=== PATIENT | female | born 1975 | race Caucasian/White ===

== ENCOUNTER 2016-12-15 15:46 | Observation (INO) | payer MEDICAID ==
--- NOTE | 2016-12-15 16:10 | Emergency Department Record ---
History of Present Illness - General Chief Complaint: Dizziness Stated Complaint: DIZZY,SHORT OF BREATH,HEART POUNDING Time Seen by Provider: 12/15/16 16:01 Source: Patient, RN notes reviewed Mode of Arrival: Ambulatory - History of Present Illness Initial Comments: weak and vomiting and lose stool. this started 4 days. patient states she is SOB and recent weight loss of 25 pounds over [address] Dr. Watson . Seeing oncologist Dr. Mauricio and being worked up for weight loss and she says it is not cancer.taking zofran and didn't seem to help. PMH parathyroid gland not working right for one month and thyroid has cysts on it. [facility] the [facility]. PSH hysterectomy Soc history smokes 1ppp. Stopped drinking 2 years ago and did drink daily before that (6-7 beers per day). She denies illegal drug . Today had some water and some eenergy drink and protein drink and no appetite. Pt said she had a chest CT about one month ago at [facility] and she reports nothing bad.patient admits to vomiting one time today and two times yesterday and three times the day before. Onset/Timin -: Days(s) Timing: Awoke with symptoms Description: Lightheadedness, Other History of Same: No History of Trauma: No Severity: Moderate Improves With: Remaining still Worsens With: Nothing, Exertion Associated Symptoms: Denies other symptoms, Shortness of breath - Related Data Home Medications Medication Instructions Recorded Confirmed Last Taken Acetaminophen [Tylenol Extra 1,000 mg PO Q6HR PRN 03/01/16 12/15/16 12/15/16 Strength] Duloxetine HCl [Cymbalta] 30 mg PO DAILY 03/01/16 12/15/16 12/15/16 Hydroxychloroquine Sulfate 200 mg PO BID 03/01/16 12/15/16 12/15/16 [Plaquenil] Loratadine [Claritin] 10 mg PO DAILY 03/01/16 12/15/16 12/15/16 Zolpidem Tartrate [Ambien] 10 mg PO ASDIR 03/31/16 12/15/16 12/15/16 Allergies Allergy/AdvReac Type Severity Reaction Status Date / Time pregabalin [From Lyrica] Allergy DIFFICULTY Verified 12/15/16 15:51 BREATHING Travel Screening - Travel/Exposure Within Last 30 Days Have you traveled within the last 30 days?: No - Travel/Exposure Within Last Year Have you traveled outside the [place] in the last year?: No - Additonal Travel Details Have you been exposed to anyone with a communicable illness?: No - Travel Symptoms Symptom Screening: None Review of Systems Constitutional: Reports: Malaise, Weakness, Weight change (lost 25 pounds in 3 months) Eyes: Reports: As per HPI. Denies: Eye discharge, Eye pain ENT: Reports: As per HPI. Denies: Congestion, Dental pain Respiratory: Reports: Cough, Dyspnea (with exercise). Denies: As per HPI Cardiovascular: Reports: As per HPI, Dyspnea on exertion. Denies: Arrhythmia, Chest pain Endocrine: Reports: Fatigue Gastrointestinal: Denies: Abdominal pain Neurological: Denies: Abnormal gait Past Medical History - SOCIAL HISTORY Smoking Status: Current every day smoker Alcohol Use: None Drug Use: None - RESPIRATORY Hx Respiratory Disorders: Yes Hx Asthma: Yes (uses inhalers PRN) - CARDIOVASCULAR Hx Cardio Disorders: No Hx Hypertension: Yes Comment:: d/t recent surgery - NEURO Hx Neuro Disorders: No - GI Hx GI Disorders: Yes Hx Abdominal Pain: Yes Hx Reflux: Yes - Hx Genitourinary Disorders: No - ENDOCRINE Hx Endocrine Disorders: Yes Comment:: Thyroid gland has cysts on it - MUSCULOSKELETAL Hx Musculoskeletal Disorders: Yes Comment:: joint pain, redness and swelling - ? autoimmune - PSYCH Hx Psych Problems: Yes Hx Anxiety: Yes Hx Depression: Yes - HEMATOLOGY/ONCOLOGY Hx Hematology/Oncology Disorders: No Family Medical History Any Significant Family History?: Yes Hx Cancer: Grandparents *Cancer Comment: Paternal Great-Grandfather - colon cancer Course Vital Signs 12/15/16 15:52 Temperature 98.4 F Pulse Rate 94 H Respiratory 18 Rate Blood Pressure 129/87 Pulse Ox 100 - Reevaluation(s) Reevaluation #1: reevaluated her med lists and she stated she is taking 10 tylenol 500 mg per day. I explained to her that could be hurting her liver and she needs to stop the tylenol. 12/15/16 17:02 Medical Decision Making - Lab Data Result diagrams: 12/15/16 16:30 12/15/16 16:30 Disposition Clinical Impression: Hyperkalemia, Weight loss Vomiting Qualifiers: Vomiting type: unspecified Vomiting Intractability: non-intractable Nausea presence: with nausea Qualified Code(s): R11.2 - Nausea with vomiting, unspecified Decision to Admit: Admit from ER Condition: (2) Stable Forms: Patient Portal Access Quality - Quality Measures Quality Measures: N/A - Blood Pressure Screening Does Patient Have Any of the Following: No Blood Pressure Classification: Pre-Hypertensive BP Reading Systolic Measurement: 129 Diastolic Measurement: 87 Screening for High Blood Pressure: < Pre-Hypertensive BP, F/U Documented > [ G8950] Pre-Hypertensive Follow-up Interventions: Referral to alternative/primary care provider.
[2016-12-15] MEDS ORDERED: 0.9 % SODIUM CHLORIDE 1,000 ML BAG IV ONE (16:17)
[2016-12-15 16:39] LABS: BASO % 0.5 % (0-6); EOS % 3.2 % (0-6); GRAN % 56.9 % (47-80); HEMATOCRIT 39.3 % (35.0-47.0); HEMOGLOBIN 14.5 gm/dl (11.6-16.0); LYMPH % 31.9 % (16-45); MEAN CELL VOLUME 91.6 fl (81-97); MEAN CORPUSCULAR HEMOGLOBIN 33.8 pg (27-33); MEAN CORPUSCULAR HGB CONC 36.9 g/dl (32-36); MEAN PLATELET VOLUME 10.9 fl (7.4-10.4); MONO % 7.5 % (0-9); PLATELET COUNT 492 K/uL (130-400); RED BLOOD COUNT 4.29 M/uL (3.80-5.40); RED CELL DISTRIBUTION WIDTH 13.1 % (11.5-14.5); URINE APPEARANCE CLEAR; URINE BILIRUBIN NEGATIVE (NEGATIVE); URINE BLOOD NEGATIVE (NEGATIVE); URINE COLOR YELLOW; URINE GLUCOSE (UA) NEGATIVE (NEGATIVE); URINE KETONE TRACE (NEGATIVE); URINE LEUKOCYTE ESTERASE NEGATIVE (NEGATIVE); URINE NITRITE NEGATIVE (NEGATIVE); URINE UROBILINOGEN 0.2 E.U./dL (0.20 - 1.00); WHITE BLOOD COUNT W/O DIFF 10.7 K/uL (4.2-12.2)
[2016-12-15 16:50] LABS: ALB/GLOB RATIO 1.6 (1.1-1.8); ALBUMIN 4.9 gm/dL (3.5-5.0); ALKALINE PHOSPHATASE 68 U/L (38-126); ALT/SGPT 38 U/L (9-52); ANION GAP 14.5 (7-16); AST/SGOT 23 U/L (14-36); BILIRUBIN,TOTAL 0.55 mg/dL (0.2-1.3); BLOOD UREA NITROGEN 14 mg/dL (7-17); CARBON DIOXIDE 14.5 mmol/L (22-30); CREATININE 0.9 mg/dL (0.52-1.04); EST GLOMERULAR FILTRATION RATE > 60 ml/min; GLUCOSE,RANDOM 73 mg/dL (70-110); LIPASE 78 U/L (23-300)
[2016-12-15 16:52] LABS: AMPHETAMINE SCREEN URINE NOT DETECTED; BARBITURATE SCREEN URINE NOT DETECTED; BENZODIAZEPINE SCREEN URINE NOT DETECTED; COCAINE SCREEN URINE NOT DETECTED; METHADONE SCREEN URINE NOT DETECTED; METHAMPHETAMINE SCREEN NOT DETECTED; OPIATE SCREEN URINE NOT DETECTED; OXYCODONE SCREEN URINE NOT DETECTED; PHENCYCLIDINE SCREEN URINE NOT DETECTED; PROPOXYPHENE SCREEN URINE NOT DETECTED; THC SCREEN URINE NOT DETECTED; TRICYCLIC ANTIDEPRESSANT SCRN DETECTED
[2016-12-15] MEDS ORDERED: POTASSIUM CHLORIDE 20 MEQ TABLET PO ONE (16:54)
[2016-12-15 17:07] LABS: ACETAMINOPHEN < 10.0 ug/mL (10.0-30.0); SALICYLATE < 1.0 mg/dL (2.8-20.0)
[2016-12-15 17:21] LABS: ARTERIAL BLD GAS O2 SATURATION 98.2 % (95-98); ARTERIAL BLOOD GAS BASE EXCESS -15.8 mmol/L (-2 - 3); ARTERIAL BLOOD GAS PCO2 23.6 mmHg (35-48); ARTERIAL BLOOD GAS pH 7.25 (7.35-7.45); O2 HEMOGLOBIN 93.6 % vol (94-99); TOTAL HEMOGLOBIN 11.5 g/dl (11.6-16)
[2016-12-15 17:22] LABS: ALLEN TEST PASS
--- NOTE | 2016-12-15 17:52 | Emergency Department Record ---
History of Present Illness - General Chief Complaint: Dizziness Stated Complaint: DIZZY,SHORT OF BREATH,HEART POUNDING Time Seen by Provider: 12/15/16 16:01 Source: Patient, RN notes reviewed Mode of Arrival: Ambulatory - History of Present Illness Onset/Timin -: Days(s) Timing: Awoke with symptoms Description: Lightheadedness, Other History of Same: No History of Trauma: No Severity: Moderate Improves With: Remaining still Worsens With: Nothing, Exertion Associated Symptoms: Denies other symptoms, Shortness of breath - Related Data Home Medications Medication Instructions Recorded Confirmed Last Taken Acetaminophen [Tylenol Extra 1,000 mg PO Q6HR PRN 03/01/16 12/15/16 12/15/16 Strength] Duloxetine HCl [Cymbalta] 30 mg PO DAILY 03/01/16 12/15/16 12/15/16 Hydroxychloroquine Sulfate 200 mg PO BID 03/01/16 12/15/16 12/15/16 [Plaquenil] Loratadine [Claritin] 10 mg PO DAILY 03/01/16 12/15/16 12/15/16 Zolpidem Tartrate [Ambien] 10 mg PO ASDIR 03/31/16 12/15/16 12/15/16 Allergies Allergy/AdvReac Type Severity Reaction Status Date / Time pregabalin [From Lyrica] Allergy DIFFICULTY Verified 12/15/16 15:51 BREATHING Travel Screening - Travel/Exposure Within Last 30 Days Have you traveled within the last 30 days?: No - Travel/Exposure Within Last Year Have you traveled outside the [place] in the last year?: No - Additonal Travel Details Have you been exposed to anyone with a communicable illness?: No - Travel Symptoms Symptom Screening: None Review of Systems Constitutional: Reports: Malaise, Weakness, Weight change (lost 25 pounds in 3 months) Eyes: Reports: As per HPI. Denies: Eye discharge, Eye pain ENT: Reports: As per HPI. Denies: Congestion, Dental pain Respiratory: Reports: Cough, Dyspnea (with exercise). Denies: As per HPI Cardiovascular: Reports: As per HPI, Dyspnea on exertion. Denies: Arrhythmia, Chest pain Endocrine: Reports: Fatigue Gastrointestinal: Denies: Abdominal pain Neurological: Denies: Abnormal gait Past Medical History - SOCIAL HISTORY Smoking Status: Current every day smoker Alcohol Use: None Drug Use: None - RESPIRATORY Hx Respiratory Disorders: Yes Hx Asthma: Yes (uses inhalers PRN) - CARDIOVASCULAR Hx Cardio Disorders: No Hx Hypertension: Yes Comment:: d/t recent surgery - NEURO Hx Neuro Disorders: No - GI Hx GI Disorders: Yes Hx Abdominal Pain: Yes Hx Reflux: Yes - Hx Genitourinary Disorders: No - ENDOCRINE Hx Endocrine Disorders: Yes Comment:: Thyroid gland has cysts on it - MUSCULOSKELETAL Hx Musculoskeletal Disorders: Yes Comment:: joint pain, redness and swelling - ? autoimmune - PSYCH Hx Psych Problems: Yes Hx Anxiety: Yes Hx Depression: Yes - HEMATOLOGY/ONCOLOGY Hx Hematology/Oncology Disorders: No Family Medical History Any Significant Family History?: Yes Hx Cancer: Grandparents *Cancer Comment: Paternal Great-Grandfather - colon cancer Course Vital Signs 12/15/16 15:52 Temperature 98.4 F Pulse Rate 94 H Respiratory 18 Rate Blood Pressure 129/87 Pulse Ox 100 Medical Decision Making - Lab Data Result diagrams: 12/15/16 16:30 12/15/16 16:30 Lab Results 12/15/16 12/15/16 12/15/16 Range/Units 16:30 16:30 16:30 WBC 10.7 (4.2-12.2) K/uL RBC 4.29 (3.80-5.40) M/uL Hgb 14.5 (11.6-16.0) gm/dl Hct 39.3 (35.0-47.0) % MCV 91.6 (81-97) fl MCH 33.8 H (27-33) pg MCHC 36.9 H (32-36) g/dl RDW 13.1 (11.5-14.5) % Plt Count 492 H (130-400) K/uL MPV 10.9 H (7.4-10.4) fl Gran % 56.9 (47-80) % Lymphocytes % 31.9 (16-45) % Monocytes % 7.5 (0-9) % Eosinophils % 3.2 (0-6) % Basophils % 0.5 (0-6) % Puncture Site pCO2 (35-48) mmHg pO2 (83-108) mmHg HCO3 (18-23) mmol/L Oxyhemoglobin (94-99) % vol ABG pH (7.35-7.45) ABG O2 Saturation (95-98) % ABG Base Excess (-2 - 3) mmol/L Yg Test Carboxyhemoglobin (0-1.5) % Methemoglobin (0.0-1.5) % Total Hemoglobin (11.6-16) g/dl Actual Respiration Rate (10-18) /MIN FiO2 (21-21) % Sodium 139 (136-145) mmol/L Potassium 2.5 L (3.5-5.1) mmol/L Chloride 110 H (98-107) mmol/L Carbon Dioxide 14.5 L (22-30) mmol/L Anion Gap 14.5 (7-16) BUN 14 (7-17) mg/dL Creatinine 0.9 (0.52-1.04) mg/dL Estimated GFR > 60 ml/min Random Glucose 73 (70-110) mg/dL Calcium 9.7 (8.5-10.1) mg/dL Magnesium (1.6-2.3) mg/dL Total Bilirubin 0.55 (0.2-1.3) mg/dL AST 23 (14-36) U/L ALT 38 (9-52) U/L Alkaline Phosphatase 68 (38-126) U/L Creatine Kinase (30-135) U/L Troponin I (0.00-0.034) ng/mL Total Protein 8.0 (6.3-8.2) gm/dL Albumin 4.9 (3.5-5.0) gm/dL Globulin 3.1 (1.4-4.8) gm/dL Albumin/Globulin Ratio 1.6 (1.1-1.8) Lipase 78 (23-300) U/L TSH (0.465-4.68) uIU/ml Urine Color Yellow Urine Appearance Clear Urine pH 6.5 (5.0-8.0) Ur Specific [place] 1.020 (1.002-1.030) Urine Protein 30 mg/dl H (NEGATIVE) Urine Glucose (UA) Negative (NEGATIVE) Urine Ketones Trace H (NEGATIVE) Urine Blood Negative (NEGATIVE) Urine Nitrite Negative (NEGATIVE) Urine Bilirubin Negative (NEGATIVE) Urine Urobilinogen 0.2 (0.20 - 1.00) E.U./dL Ur Leukocyte Esterase Negative (NEGATIVE) Salicylates (2.8-20.0) mg/dL Urine Opiates Screen Ur Oxycodone Screen Urine Methadone Screen Ur Propoxyphene Screen Acetaminophen (10.0-30.0) ug/mL Ur Barbituates Screen Ur Tricyclics Screen Ur Phencyclidine Scrn Ur Amphetamine Screen U Methamphetamines Scrn U Benzodiazepines Scrn Urine Cocaine Screen Urine Cannabis Screen Ethyl Alcohol (0-0.010) g/dL 12/15/16 12/15/16 12/15/16 Range/Units 16:30 16:30 16:30 WBC (4.2-12.2) K/uL RBC (3.80-5.40) M/uL Hgb (11.6-16.0) gm/dl Hct (35.0-47.0) % MCV (81-97) fl MCH (27-33) pg MCHC (32-36) g/dl RDW (11.5-14.5) % Plt Count (130-400) K/uL MPV (7.4-10.4) fl Gran % (47-80) % Lymphocytes % (16-45) % Monocytes % (0-9) % Eosinophils % (0-6) % Basophils % (0-6) % Puncture Site pCO2 (35-48) mmHg pO2 (83-108) mmHg HCO3 (18-23) mmol/L Oxyhemoglobin (94-99) % vol ABG pH (7.35-7.45) ABG O2 Saturation (95-98) % ABG Base Excess (-2 - 3) mmol/L Yg Test Carboxyhemoglobin (0-1.5) % Methemoglobin (0.0-1.5) % Total Hemoglobin (11.6-16) g/dl Actual Respiration Rate (10-18) /MIN FiO2 (21-21) % Sodium (136-145) mmol/L Potassium (3.5-5.1) mmol/L Chloride (98-107) mmol/L Carbon Dioxide (22-30) mmol/L Anion Gap (7-16) BUN (7-17) mg/dL Creatinine (0.52-1.04) mg/dL Estimated GFR ml/min Random Glucose (70-110) mg/dL Calcium (8.5-10.1) mg/dL Magnesium (1.6-2.3) mg/dL Total Bilirubin (0.2-1.3) mg/dL AST (14-36) U/L ALT (9-52) U/L Alkaline Phosphatase (38-126) U/L Creatine Kinase 91 (30-135) U/L Troponin I (0.00-0.034) ng/mL Total Protein (6.3-8.2) gm/dL Albumin (3.5-5.0) gm/dL Globulin (1.4-4.8) gm/dL Albumin/Globulin Ratio (1.1-1.8) Lipase (23-300) U/L TSH 1.74 (0.465-4.68) uIU/ml Urine Color Urine Appearance Urine pH (5.0-8.0) Ur Specific [place] (1.002-1.030) Urine Protein (NEGATIVE) Urine Glucose (UA) (NEGATIVE) Urine Ketones (NEGATIVE) Urine Blood (NEGATIVE) Urine Nitrite (NEGATIVE) Urine Bilirubin (NEGATIVE) Urine Urobilinogen (0.20 - 1.00) E.U./dL Ur Leukocyte Esterase (NEGATIVE) Salicylates (2.8-20.0) mg/dL Urine Opiates Screen Not detected Ur Oxycodone Screen Not detected Urine Methadone Screen Not detected Ur Propoxyphene Screen Not detected Acetaminophen (10.0-30.0) ug/mL Ur Barbituates Screen Not detected Ur Tricyclics Screen Detected Ur Phencyclidine Scrn Not detected Ur Amphetamine Screen Not detected U Methamphetamines Scrn Not detected U Benzodiazepines Scrn Not detected Urine Cocaine Screen Not detected Urine Cannabis Screen Not detected Ethyl Alcohol (0-0.010) g/dL 12/15/16 12/15/16 12/15/16 Range/Units 16:30 16:30 16:30 WBC (4.2-12.2) K/uL RBC (3.80-5.40) M/uL Hgb (11.6-16.0) gm/dl Hct (35.0-47.0) % MCV (81-97) fl MCH (27-33) pg MCHC (32-36) g/dl RDW (11.5-14.5) % Plt Count (130-400) K/uL MPV (7.4-10.4) fl Gran % (47-80) % Lymphocytes % (16-45) % Monocytes % (0-9) % Eosinophils % (0-6) % Basophils % (0-6) % Puncture Site pCO2 (35-48) mmHg pO2 (83-108) mmHg HCO3 (18-23) mmol/L Oxyhemoglobin (94-99) % vol ABG pH (7.35-7.45) ABG O2 Saturation (95-98) % ABG Base Excess (-2 - 3) mmol/L Yg Test Carboxyhemoglobin (0-1.5) % Methemoglobin (0.0-1.5) % Total Hemoglobin (11.6-16) g/dl Actual Respiration Rate (10-18) /MIN FiO2 (21-21) % Sodium (136-145) mmol/L Potassium (3.5-5.1) mmol/L Chloride (98-107) mmol/L Carbon Dioxide (22-30) mmol/L Anion Gap (7-16) BUN (7-17) mg/dL Creatinine (0.52-1.04) mg/dL Estimated GFR ml/min Random Glucose (70-110) mg/dL Calcium (8.5-10.1) mg/dL Magnesium 2.3 (1.6-2.3) mg/dL Total Bilirubin (0.2-1.3) mg/dL AST (14-36) U/L ALT (9-52) U/L Alkaline Phosphatase (38-126) U/L Creatine Kinase (30-135) U/L Troponin I < 0.012 (0.00-0.034) ng/mL Total Protein (6.3-8.2) gm/dL Albumin (3.5-5.0) gm/dL Globulin (1.4-4.8) gm/dL Albumin/Globulin Ratio (1.1-1.8) Lipase (23-300) U/L TSH (0.465-4.68) uIU/ml Urine Color Urine Appearance Urine pH (5.0-8.0) Ur Specific [place] (1.002-1.030) Urine Protein (NEGATIVE) Urine Glucose (UA) (NEGATIVE) Urine Ketones (NEGATIVE) Urine Blood (NEGATIVE) Urine Nitrite (NEGATIVE) Urine Bilirubin (NEGATIVE) Urine Urobilinogen (0.20 - 1.00) E.U./dL Ur Leukocyte Esterase (NEGATIVE) Salicylates < 1.0 L (2.8-20.0) mg/dL Urine Opiates Screen Ur Oxycodone Screen Urine Methadone Screen Ur Propoxyphene Screen Acetaminophen < 10.0 L (10.0-30.0) ug/mL Ur Barbituates Screen Ur Tricyclics Screen Ur Phencyclidine Scrn Ur Amphetamine Screen U Methamphetamines Scrn U Benzodiazepines Scrn Urine Cocaine Screen Urine Cannabis Screen Ethyl Alcohol 0.000 (0-0.010) g/dL 12/15/16 Range/Units 17:15 WBC (4.2-12.2) K/uL RBC (3.80-5.40) M/uL Hgb (11.6-16.0) gm/dl Hct (35.0-47.0) % MCV (81-97) fl MCH (27-33) pg MCHC (32-36) g/dl RDW (11.5-14.5) % Plt Count (130-400) K/uL MPV (7.4-10.4) fl Gran % (47-80) % Lymphocytes % (16-45) % Monocytes % (0-9) % Eosinophils % (0-6) % Basophils % (0-6) % Puncture Site Left wrist pCO2 23.6 L (35-48) mmHg pO2 108.0 (83-108) mmHg HCO3 10.0 L (18-23) mmol/L Oxyhemoglobin 93.6 L (94-99) % vol ABG pH 7.25 L (7.35-7.45) ABG O2 Saturation 98.2 H (95-98) % ABG Base Excess -15.8 L (-2 - 3) mmol/L Yg Test Pass Carboxyhemoglobin 5.0 H (0-1.5) % Methemoglobin 0.0 (0.0-1.5) % Total Hemoglobin 11.5 L (11.6-16) g/dl Actual Respiration Rate 16.0 (10-18) /MIN FiO2 21.0 (21-21) % Sodium (136-145) mmol/L Potassium (3.5-5.1) mmol/L Chloride (98-107) mmol/L Carbon Dioxide (22-30) mmol/L Anion Gap (7-16) BUN (7-17) mg/dL Creatinine (0.52-1.04) mg/dL Estimated GFR ml/min Random Glucose (70-110) mg/dL Calcium (8.5-10.1) mg/dL Magnesium (1.6-2.3) mg/dL Total Bilirubin (0.2-1.3) mg/dL AST (14-36) U/L ALT (9-52) U/L Alkaline Phosphatase (38-126) U/L Creatine Kinase (30-135) U/L Troponin I (0.00-0.034) ng/mL Total Protein (6.3-8.2) gm/dL Albumin (3.5-5.0) gm/dL Globulin (1.4-4.8) gm/dL Albumin/Globulin Ratio (1.1-1.8) Lipase (23-300) U/L TSH (0.465-4.68) uIU/ml Urine Color Urine Appearance Urine pH (5.0-8.0) Ur Specific [place] (1.002-1.030) Urine Protein (NEGATIVE) Urine Glucose (UA) (NEGATIVE) Urine Ketones (NEGATIVE) Urine Blood (NEGATIVE) Urine Nitrite (NEGATIVE) Urine Bilirubin (NEGATIVE) Urine Urobilinogen (0.20 - 1.00) E.U./dL Ur Leukocyte Esterase (NEGATIVE) Salicylates (2.8-20.0) mg/dL Urine Opiates Screen Ur Oxycodone Screen Urine Methadone Screen Ur Propoxyphene Screen Acetaminophen (10.0-30.0) ug/mL Ur Barbituates Screen Ur Tricyclics Screen Ur Phencyclidine Scrn Ur Amphetamine Screen U Methamphetamines Scrn U Benzodiazepines Scrn Urine Cocaine Screen Urine Cannabis Screen Ethyl Alcohol (0-0.010) g/dL Disposition Clinical Impression: Weight loss, Hypokalemia Vomiting Qualifiers: Vomiting type: unspecified Vomiting Intractability: non-intractable Nausea presence: with nausea Qualified Code(s): R11.2 - Nausea with vomiting, unspecified Condition: (2) Stable Forms: Patient Portal Access Quality - Quality Measures Quality Measures: N/A - Blood Pressure Screening Does Patient Have Any of the Following: No Blood Pressure Classification: Pre-Hypertensive BP Reading Systolic Measurement: 129 Diastolic Measurement: 87 Screening for High Blood Pressure: < Pre-Hypertensive BP, F/U Documented > [ G8950] Pre-Hypertensive Follow-up Interventions: Referral to alternative/primary care provider.
[2016-12-15] MEDS ORDERED: ONDANSETRON 4 MG ODT TABLET SL PRN (18:00)
[2016-12-15] MEDS ORDERED: POTASSIUM CHL 20MEQ IN 1L NS 20 MEQ/1,000 ML BAG IV SCH (18:00)
[2016-12-15] MEDS: POTASSIUM CHL 20MEQ IN 1L NS 20 MEQ/1,000 ML BAG IV SCH (18:24)
[2016-12-15] MEDS: HYDROXYCHLOROQUINE SULFATE 200 MG TABLET PO SCH (21:06)
[2016-12-15] MEDS: NICOTINE 21 MG/24 HOUR PATCH TD SCH (21:06)
[2016-12-15] MEDS: POTASSIUM CHLORIDE 20 MEQ TABLET PO SCH (21:06)
[2016-12-15] MEDS ORDERED: ZOLPIDEM TARTRATE 5 MG TABLET PO SCH (22:00)
[2016-12-16] MEDS: POTASSIUM CHL 20MEQ IN 1L NS 20 MEQ/1,000 ML BAG IV SCH (03:29)
[2016-12-16 06:19] LABS: ANION GAP 7.2 (7-16); BLOOD UREA NITROGEN 10 mg/dL (7-17); CARBON DIOXIDE 11.8 mmol/L (22-30); CREATININE 0.7 mg/dL (0.52-1.04); EST GLOMERULAR FILTRATION RATE > 60 ml/min; GLUCOSE,RANDOM 80 mg/dL (70-110)
[2016-12-16 06:30] LABS: ARTERIAL BLOOD GAS HCO3 11.3 mmol/L (18-23); ARTERIAL BLOOD GAS PCO2 30.2 mmHg (35-48)
[2016-12-16 06:31] LABS: ARTERIAL BLD GAS O2 SATURATION 71.6 % (95-98); ARTERIAL BLOOD GAS BASE EXCESS -15.5 mmol/L (-2 - 3)
[2016-12-16 06:32] LABS: CARBOXYHEMOGLOBIN 1.3 % (0-1.5); O2 HEMOGLOBIN 70.6 % vol (94-99)
--- NOTE | 2016-12-16 07:09 | History & Physical ---
History of Present Illness - Date of Service Date of Service for History & Physical: 12/16/16 - History of Present Illness Admitting Diagnosis: hypokalemia. vomiting. weakness. weight loss. metabolic disorder History of Present Illness: 41 y/o female with CC dizziness,fatigue, vomiting admitted for hypokalema. Past medical history includes asthma, GERD, 25lb weight loss since August 2016, thyroid cysts, questionable autoimmune disorder, anxiety, depression Prior to arrival had 3 day history of vomiting, fatigue, watery diarrhea, dizziness and rapid heart rate. Denies recent sick contacts or questionable food source. Patient reports 25lb weight loss in the past 3 months and is currently undergoing work up with endocrinology, oncology, and upcoming GI consult to diagnose cause. She has had previous episodes of vomiting, diarrhea and low potassium within the the last 3 months but has usually been able to remain hydrated with less than critical potassium numbers. Last colonoscopy 2009 which she reports was normal with the exception of a few polyps. She reports oncology has ruled out cancerous process. No recent mammogram but has hyperdense breasts. Did have appointment with endocrinology at [facility] the day prior to admission and reports there may be an issue with her parathyroid gland along with the known cysts on her thyroid that are too small to biopsy. Admits to taking 5gm total tylenol in a day for treatment of what she believes to be fibromyalgia. Denies history anorexia or bulemia. While in the ED VSS, EKG NSR with flattened T waves, UDS negative, acetaminophin level negative. Platelets slightly elevated at 492 with otherwise unremarkable findings in CBC. TSH 1.74. Potassium 2.5, chloride 110, CO2 14.5 with normal anion gap. Magnesium normal. Liver enzymes normal. ABGs with low CO2 23.6, low HCO3, low pH 7.25. Urinalysis trace ketones and protein. Complex medical history with acute onset vomiting. Clinically dehydrated. Admitted for dehyrdration, hypokalemia, repeat ABGs in the am and electrolyte replacement. 12/16/16- resting in bed comfortably. Denies chest pain, palpitations, muscle heaviness. Reports she feels much better today. Mild intermittent nausea, has not felt she needed an antiemetic. Continues to have loose watery stools ( had 4 today already) without abdominal pain or cramping. Does have an appetite today , ate 100% breakfast without worsening of nausea of vomiting. No new nursing concerns. PCP: Dr Sandi Watson Endocrinology: [facility] Oncology: [facility] Gastroenterology: Awaiting consult Jan 03 Rheumatology: Dr Marion Travel Screening - Travel/Exposure Within Last 30 Days Have you traveled within the last 30 days?: No - Travel/Exposure Within Last Year Have you traveled outside the [place] in the last year?: No - Additonal Travel Details Have you been exposed to anyone with a communicable illness?: No - Travel Symptoms Symptom Screening: None Review of Systems Constitutional: Reports: Malaise, Weakness, Weight change (lost 25 pounds in 3 months) Eyes: Reports: As per HPI. Denies: Eye discharge, Eye pain ENT: Reports: As per HPI. Denies: Congestion, Dental pain Respiratory: Reports: Cough, Dyspnea (with exercise). Denies: As per HPI Cardiovascular: Reports: As per HPI, Dyspnea on exertion. Denies: Arrhythmia, Chest pain Endocrine: Reports: Fatigue Gastrointestinal: Denies: Abdominal pain Neurological: Denies: Abnormal gait Past Medical History - SOCIAL HISTORY Smoking Status: Current every day smoker Alcohol Use: None Drug Use: None - RESPIRATORY Hx Respiratory Disorders: Yes Hx Asthma: Yes (uses inhalers PRN) - CARDIOVASCULAR Hx Cardio Disorders: No Hx Chest Pain: Yes Hx Hypertension: No Hx Palpitations: Yes Comment:: d/t recent surgery - NEURO Hx Neuro Disorders: Yes Hx Dizziness: Yes - GI Hx GI Disorders: Yes Hx Abdominal Pain: Yes Hx Reflux: Yes Hx Nausea/Vomiting: Yes Hx Wt Loss/Wt Gain: Yes - Hx Genitourinary Disorders: No - ENDOCRINE Hx Endocrine Disorders: Yes Comment:: Thyroid gland has cysts on it - MUSCULOSKELETAL Hx Musculoskeletal Disorders: Yes Comment:: joint pain, redness and swelling - ? autoimmune - PSYCH Hx Psych Problems: Yes Hx Anxiety: Yes Hx Depression: Yes - HEMATOLOGY/ONCOLOGY Hx Hematology/Oncology Disorders: No Family Medical History Any Significant Family History?: Yes Hx Cancer: Grandparents *Cancer Comment: Paternal Great-Grandfather - colon cancer H&P Meds/Allergies - Allergies Allergies: Allergies Allergy/AdvReac Type Severity Reaction Status Date / Time pregabalin [From Lyrica] Allergy DIFFICULTY Verified 12/15/16 15:51 BREATHING - Home Medications Home Medications Medication Instructions Recorded Confirmed Last Taken Acetaminophen [Tylenol Extra 1,000 mg PO Q6HR PRN 03/01/16 12/15/16 12/15/16 Strength] Duloxetine HCl [Cymbalta] 120 mg PO DAILY 03/01/16 12/15/16 12/15/16 Hydroxychloroquine Sulfate 200 mg PO BID 03/01/16 12/15/16 12/15/16 [Plaquenil] Loratadine [Claritin] 10 mg PO DAILY 03/01/16 12/15/16 12/15/16 Zolpidem Tartrate [Ambien] 10 mg PO QHS 03/31/16 12/15/16 12/15/16 - Active Medications Active Medications: Current Medications Duloxetine HCl (Cymbalta) 120 mg PO DAILY [facility] Enoxaparin Sodium (Lovenox) 40 mg SQ DAILY [facility] Hydroxychloroquine Sulfate (Plaquenil) 200 mg PO BID [facility] Last Admin: 12/15/16 21:06 Dose: 200 mg Potassium Chloride/Sodium Chloride ( Potassium Chl 20meq/) 20 meq in 1,000 mls @ 100 mls/hr IV Q10H [facility] Last Admin: 12/16/16 03:29 Dose: 100 mls/hr Loratadine (Claritin) 10 mg PO DAILY [facility] Nicotine (Nicotine 21mg) 1 patch TD DAILY [facility] Last Admin: 12/15/16 21:06 Dose: 1 patch Ondansetron HCl (Zofran Odt) 8 mg SL Q8HR PRN PRN Reason: GI UPSET Potassium Chloride (Klor-Con) 20 meq PO TID [facility] Last Admin: 12/15/16 21:06 Dose: 20 meq Zolpidem Tartrate (Ambien) 10 mg PO QHS [facility] Last Admin: 12/15/16 21:06 Dose: 10 mg Physical Exam - Vital Signs Vital Signs: Vital Signs - Last 24 Hrs Temp Pulse Pulse Pulse Resp BP BP 12/16/16 06:00 98.0 F 80 16 90/60 12/16/16 02:25 98.2 F 82 16 89/51 12/15/16 21:08 97.5 F L 84 18 95/57 12/15/16 21:00 84 18 12/15/16 18:31 85 12/15/16 18:00 86 83 16 115/85 105/77 Pulse Ox 12/16/16 06:00 100 12/16/16 02:25 97 12/15/16 21:08 100 12/15/16 21:00 12/15/16 18:31 12/15/16 18:00 98 - General General Appearance: Alert, Oriented x3, No acute distress, Other (apprears well hydrated, alert, appropriate affect, smiling. Is thin but no cachectic) - Head Head exam: Normal inspection Head exam detail: negative: Abrasion, Contusion - Eye Eye exam: Normal appearance - ENT ENT exam: Normal exam, Mucous membranes moist - Neck Neck exam: Normal inspection - Cardiovascular Cardiovascular Exam: Regular rate, Normal rhythm, Normal heart sounds - GI/Abdominal GI/Abdominal exam: Soft, Normal bowel sounds. negative: Tenderness - Rectal Rectal exam: Deferred - exam: Deferred - Extremities Extremities exam: Normal inspection. negative: Pedal edema - Back Back exam: Reports: Normal inspection - Neurological Neurological exam: Alert, CN II-XII intact, Oriented X3 - Psychiatric Psychiatric exam: Normal affect, Normal mood - Skin Skin exam: Dry, Intact, Normal color, Warm Results - Labs Result Diagrams: 12/15/16 16:30 12/16/16 06:00 Labs Last 24 Hours: Laboratory Results - last 24 hr 12/15/16 12/16/16 12/16/16 Unknown 06:00 06:19 Puncture Site pCO2 30.2 L pO2 46.0 L* HCO3 11.3 L Oxyhemoglobin 70.6 L ABG pH 7.20 L ABG O2 Saturation 71.6 L* ABG Base Excess -15.5 L Yg Test Not Reportable Carboxyhemoglobin 1.3 Methemoglobin 0.0 Actual Respiration Rate 16.0 FiO2 21.0 Sodium 142 Potassium 3.1 L Chloride 123 H Carbon Dioxide 11.8 L Anion Gap 7.2 BUN 10 Creatinine 0.7 Estimated GFR > 60 Random Glucose 80 Calcium 8.0 L Acetone, Qual Negative - Imaging and Cardiology Chest x-ray Status: Report reviewed (no acute process) VTE H&P Assessment - Risk for VTE Risk for VTE: Yes Risk Level: Moderate Risk Assessment Date: 12/16/16 Risk Assessment Time: 07:18 VTE Orders Placed or Will Be Placed: Yes Plan - Inpatient Certification Inpatient Certification: Admit to inpatient care: Based on my medical assessment, after consideration of patient's risk factors (age, co-morbidities and patient presenting symptoms and acuity), I expect that this patient will remain in the hospital greater than or equal to two midnights and that the services needed warrant inpatient care because: Patient Risk Factors: [] Estimated length of stay: [] The patient may reasonably be expected to be discharged or transferred to a hospital within 96 hours after admission to [facility]. Services needed: [] Post hospital care (if known): [] I certify that my determination is in accordance with my understanding of Medicare requirements for reasonable and necessary inpatient services. - Detailed Diagnosis and Plan (1) Hypokalemia Current Visit: Yes Status: Acute Base Code: E87.6 - HYPOKALEMIA Comment: - 41 y/o female admitted for hypokalema and metabolic alkalosis after 3 day history of vomiting, dizziness, rapid heart rate. ABGs low CO2, low HCO3, low pH, K 2.5, EKG with flattened T waves. Clinical picture of dehydration and metabolic alkalosis 2nd GI loss. Complex medical history includes 25lb unexplained weight loss in the last 3 months. Has been following with [facility], [facility] endocrinology, rheumatology to identify etiology. Significantly underweight with BMI 15. - IV potassium replacement - oral potassium replacement - IV hydration - telemetry - repeat BMP and ABG today - stool cultures - nutrition consult (2) Metabolic alkalosis Current Visit: Yes Status: Acute Base Code: E87.3 - ALKALOSIS Comment: - see above (3) Vomiting Current Visit: Yes Status: Acute Qualifiers: Vomiting type: unspecified Vomiting Intractability: non-intractable Nausea presence: with nausea Qualified Code(s): R11.2 - Nausea with vomiting, unspecified Base Code: R11.10 - VOMITING, UNSPECIFIED Comment: 12/16/16- vomiting resolved. Is tolerated PO intake. (4) Weight loss Current Visit: Yes Status: Acute Base Code: R63.4 - ABNORMAL WEIGHT LOSS Comment: 12/16/16- 3 month history of unexplained weight loss. Work up with community specialists in progress. - dietary consult for supplements - tolerating PO intake and eating well - continue follow up with specialists (oncology, gastroenterology, endocrinology ) as outpatient (5) DVT prophylaxis Current Visit: Yes Status: Acute Base Code: [id number] - Comment: 12/16/16- Lovenox 40mg QD (6) Full code status Current Visit: Yes Status: Acute Base Code: Z78.9 - OTHER SPECIFIED HEALTH STATUS Comment: 12/16/16- will remain full code during this hospitalization
[2016-12-16 07:20] LABS: ARTERIAL BLOOD GAS BASE EXCESS -15.7 mmol/L (-2 - 3); ARTERIAL BLOOD GAS PCO2 23.5 mmHg (35-48); ARTERIAL BLOOD GAS pH 7.25 (7.35-7.45)
[2016-12-16 07:21] LABS: ARTERIAL BLD GAS O2 SATURATION 98.4 % (95-98); CARBOXYHEMOGLOBIN 0.7 % (0-1.5); METHEMOGLOBIN 0.6 % (0.0-1.5); O2 HEMOGLOBIN 97.2 % vol (94-99)
[2016-12-16 07:25] LABS: ALLEN TEST PASS
[2016-12-16] MEDS: HYDROXYCHLOROQUINE SULFATE 200 MG TABLET PO SCH ×2 (08:24→09:58)
[2016-12-16] MEDS: POTASSIUM CHLORIDE 20 MEQ TABLET PO SCH ×2 (08:24→09:58)
[2016-12-16] MEDS: DULOXETINE HCL 30 MG CAPSULE.DR PO SCH ×2 (08:24→09:58)
[2016-12-16] MEDS ORDERED: ACETAMINOPHEN 500 MG TABLET PO PRN (09:29)
[2016-12-16] MEDS ORDERED: LORATADINE 10 MG TABLET PO SCH (10:00)
[2016-12-16] MEDS ORDERED: ENOXAPARIN 40 MG/0.4 ML SYR SQ SCH (10:00)
[2016-12-16] MEDS ORDERED: DULOXETINE HCL 30 MG CAPSULE.DR PO SCH (10:00)
[2016-12-16 10:47] LABS: ROTOVIRUS NOT DETECTED (NOT DETECT)
[2016-12-16] MEDS: NICOTINE 21 MG/24 HOUR PATCH TD SCH (13:12)
[2016-12-16 13:21] LABS: MOLECULAR C DIFF TOXIN SCREEN NOT DETECTED
[2016-12-16 14:52] LABS: ANION GAP 5.7 (7-16); BLOOD UREA NITROGEN 8 mg/dL (7-17); CARBON DIOXIDE 14.3 mmol/L (22-30); CREATININE 0.8 mg/dL (0.52-1.04); EST GLOMERULAR FILTRATION RATE > 60 ml/min; GLUCOSE,RANDOM 73 mg/dL (70-110)
--- NOTE | 2016-12-16 15:40 | Discharge Summary ---
Providers Discharge Summary Date: 12/16/16 Date of admission: 12/15/16 17:56 Expected Date of Discharge: 12/16/16 Attending physician: ROCCO FREEDMAN Primary care physician: KALLIE WATSON D.O. Physical Exam - Vital Signs Vital Signs: Vital Signs - Last 24 Hrs Temp Pulse Pulse Pulse Resp BP BP 12/16/16 14:00 83 16 93/64 12/16/16 09:43 98.4 F 91 H 16 85/59 12/16/16 06:00 98.0 F 80 16 90/60 12/16/16 02:25 98.2 F 82 16 89/51 12/15/16 21:08 97.5 F L 84 18 95/57 12/15/16 21:00 84 18 12/15/16 18:31 85 12/15/16 18:00 86 83 16 115/85 105/77 Pulse Ox 12/16/16 14:00 100 12/16/16 09:43 100 12/16/16 06:00 100 12/16/16 02:25 97 12/15/16 21:08 100 12/15/16 21:00 12/15/16 18:31 12/15/16 18:00 98 - General General Appearance: Alert, Oriented x3, No acute distress, Other (apprears well hydrated, alert, appropriate affect, smiling. Is thin but no cachectic) - Head Head exam: Normal inspection Head exam detail: negative: Abrasion, Contusion - Eye Eye exam: Normal appearance - ENT ENT exam: Normal exam, Mucous membranes moist - Neck Neck exam: Normal inspection - Cardiovascular Cardiovascular Exam: Regular rate, Normal rhythm, Normal heart sounds - GI/Abdominal GI/Abdominal exam: Soft, Normal bowel sounds. negative: Tenderness - Rectal Rectal exam: Deferred - exam: Deferred - Extremities Extremities exam: Normal inspection. negative: Pedal edema - Back Back exam: Reports: Normal inspection - Neurological Neurological exam: Alert, CN II-XII intact, Oriented X3 - Psychiatric Psychiatric exam: Normal affect, Normal mood - Skin Skin exam: Dry, Intact, Normal color, Warm Hospitalization - Hospitalization Admission Diagnosis: hypokalemia. vomiting. weakness. weight loss. metabolic disorder - Problem List/Discharge Diagnosis (1) Hypokalemia Current Visit: Yes Status: Acute Base Code: E87.6 - HYPOKALEMIA Comment: - 41 y/o female admitted for hypokalema and metabolic alkalosis after 3 day history of vomiting, dizziness, rapid heart rate. ABGs low CO2, low HCO3, low pH, K 2.5, EKG with flattened T waves. Clinical picture of dehydration and metabolic alkalosis 2nd GI loss. Complex medical history includes 25lb unexplained weight loss in the last 3 months. Has been following with [facility] oncology, [facility] endocrinology, rheumatology to identify etiology. Significantly underweight with BMI 15. After IV and PO potassium replacement potassium level up to 3.4. Remains asymptomatic. Diarrhea and nausea has resolved. Tolerating PO intake. Stool studies negative for c-diff, rotavirus, polys. Telemetry remained NSR with very slight flattening of t waves. Repeat ABG shows no worsening of metabolic alkalosis, BMP showing trend towards compensation - potassium chloride 20mEq BID - do not exceed 4gm Acetaminofen in 24 hours - follow up with PCP on Saturday as scheduled - follow up gastroenterolgist as scheduled early December - continue with [facility] endocrinology and [facility] oncology as scheduled (2) Metabolic alkalosis Current Visit: Yes Status: Acute Base Code: E87.3 - ALKALOSIS Comment: - see above (3) Vomiting Current Visit: Yes Status: Acute Discharge Diagnosis: Vomiting type: unspecified Vomiting Intractability: non-intractable Nausea presence: with nausea Qualified Code(s): R11.2 - Nausea with vomiting, unspecified Base Code: R11.10 - VOMITING, UNSPECIFIED Comment: 12/16/16- vomiting resolved. Is tolerated PO intake. (4) Weight loss Current Visit: Yes Status: Acute Base Code: R63.4 - ABNORMAL WEIGHT LOSS Comment: 12/16/16- 3 month history of unexplained weight loss. Work up with community specialists in progress. - tolerating PO intake and eating well - continue follow up with specialists (oncology, gastroenterology, endocrinology ) as outpatient (5) DVT prophylaxis Current Visit: Yes Status: Acute Base Code: [id number] - Comment: 12/16/16- Lovenox 40mg QD (6) Full code status Current Visit: Yes Status: Acute Base Code: Z78.9 - OTHER SPECIFIED HEALTH STATUS Comment: 12/16/16- will remain full code during this hospitalization - Hospitalization Course Disposition: Home, Self-Care Hospital Course: 41 y/o female with CC dizziness,fatigue, vomiting admitted for hypokalema. Past medical history includes asthma, GERD, 25lb weight loss since August 2016, thyroid cysts, questionable autoimmune disorder, anxiety, depression Prior to arrival had 3 day history of vomiting, fatigue, watery diarrhea, dizziness and rapid heart rate. Denies recent sick contacts or questionable food source. Patient reports 25lb weight loss in the past 3 months and is currently undergoing work up with endocrinology, oncology, and upcoming GI consult to diagnose cause. She has had previous episodes of vomiting, diarrhea and low potassium within the the last 3 months but has usually been able to remain hydrated with less than critical potassium numbers. Last colonoscopy 2009 which she reports was normal with the exception of a few polyps. She reports oncology has ruled out cancerous process. No recent mammogram but has hyperdense breasts. Did have appointment with endocrinology at [facility] the day prior to admission and reports there may be an issue with her parathyroid gland along with the known cysts on her thyroid that are too small to biopsy. Admits to taking 5gm total tylenol in a day for treatment of what she believes to be fibromyalgia. Denies history anorexia or bulemia. While in the ED VSS, EKG NSR with flattened T waves, UDS negative, acetaminophin level negative. Platelets slightly elevated at 492 with otherwise unremarkable findings in CBC. TSH 1.74. Potassium 2.5, chloride 110, CO2 14.5 with normal anion gap. Magnesium normal. Liver enzymes normal. ABGs with low CO2 23.6, low HCO3, low pH 7.25. Urinalysis trace ketones and protein. Complex medical history with acute onset vomiting. Clinically dehydrated. Admitted for dehyrdration, hypokalemia, repeat ABGs in the am and electrolyte replacement. 12/16/16- resting in bed comfortably. Denies chest pain, palpitations, muscle heaviness. Reports she feels much better today. Mild intermittent nausea, has not felt she needed an antiemetic. Continues to have loose watery stools ( had 4 today already) without abdominal pain or cramping. Does have an appetite today , ate 100% breakfast without worsening of nausea of vomiting. No new nursing concerns. PCP: Dr Kallie Watson Endocrinology: [facility] Oncology: [facility] Gastroenterology: Awaiting consult Jan 03 Rheumatology: Dr Marion Abnormal Labs: Abnormal Lab Results 12/16/16 12/16/16 12/16/16 Range/Units 06:00 06:19 07:10 pCO2 30.2 L 23.5 L (35-48) mmHg pO2 46.0 L* (83-108) mmHg HCO3 11.3 L 10.0 L (18-23) mmol/L Oxyhemoglobin 70.6 L (94-99) % vol ABG pH 7.20 L 7.25 L (7.35-7.45) ABG O2 Saturation 71.6 L* 98.4 H (95-98) % ABG Base Excess -15.5 L -15.7 L (-2 - 3) mmol/L Potassium 3.1 L (3.5-5.1) mmol/L Chloride 123 H (98-107) mmol/L Carbon Dioxide 11.8 L (22-30) mmol/L Anion Gap (7-16) Calcium 8.0 L (8.5-10.1) mg/dL 12/16/16 Range/Units 14:07 pCO2 (35-48) mmHg pO2 (83-108) mmHg HCO3 (18-23) mmol/L Oxyhemoglobin (94-99) % vol ABG pH (7.35-7.45) ABG O2 Saturation (95-98) % ABG Base Excess (-2 - 3) mmol/L Potassium 3.4 L (3.5-5.1) mmol/L Chloride 122 H (98-107) mmol/L Carbon Dioxide 14.3 L (22-30) mmol/L Anion Gap 5.7 L (7-16) Calcium 7.8 L (8.5-10.1) mg/dL Condition at Discharge: (2) Stable Discharge Medications - Discharge Medications Prescriptions: Potassium Chloride [Klor-Con] 20 meq PO BID #60 tab Home Medications: Ambulatory Orders Acetaminophen [Tylenol Extra Strength] 1,000 mg PO Q6HR PRN 03/01/16 [Last Taken 12/15/16] Duloxetine HCl [Cymbalta] 120 mg PO DAILY 03/01/16 [Last Taken 12/15/16] Hydroxychloroquine Sulfate [Plaquenil] 200 mg PO BID 03/01/16 [Last Taken ] Loratadine [Claritin] 10 mg PO DAILY 03/01/16 [Last Taken 12/15/16] Zolpidem Tartrate [Ambien] 10 mg PO QHS 03/31/16 [Last Taken 12/15/16] Acetaminophen [Tylenol 500Mg Tab] 1,000 mg PO Q6H PRN 12/16/16 [Last Taken Unknown] Potassium Chloride [Klor-Con] 20 meq PO BID #60 tab 12/16/16 [Last Taken Unknown ] Discharge Plan - Discharge Instructions Activity at Discharge: Increase Activity as Tolerated Diet at Discharge: Regular Diet
--- NOTE | 2016-12-17 08:23 | RADIOLOGY REPORT ---
EXAM: CHEST, TWO VIEWS HISTORY: CHEST PAIN, SHORTNESS OF BREATH WITH EXERTION. TECHNIQUE: PA and lateral views of the chest were obtained. Comparison: Two view chest 09/17/16. FINDINGS: The heart size is normal. Mild apical pleural thickening bilaterally. The lungs appear expanded with no acute infiltrate seen. No pleural effusion or pneumothorax evident. Minor spurring in the spine. IMPRESSION: MILD APICAL PLEURAL THICKENING BILATERALLY. NO ACUTE INFILTRATE IDENTIFIED. JOB NUMBER: [id number] MTDD
== END 2016-12-16 16:16 | disposition home or self-care (01) ==
LOC: ER 15:46 → INTOOBSV 17:56 → MEDSURG 17:56
PROVIDERS: ADMIT Emergency Medicine; ATTEND Family Medicine
DX: E87.6 Hypokalemia (principal); E87.3 Alkalosis; R11.2 Nausea with vomiting, unspecified; R63.4 Abnormal weight loss; Z78.9 Other specified health status; Z79.899 Other long term (current) drug therapy; F17.200 Nicotine dependence, unspecified, uncomplicated; J45.909 Unspecified asthma, uncomplicated; F41.8 Other specified anxiety disorders; E86.0 Dehydration
CPT/HCPCS: 99285 ×2; 96360; 82550; 83735; 83690; 85025; 82375 ×2; 84484; 80048; 80053; 82009; 89055; 87425; 81003; 82803 ×2; 84443; 80305; 87493; 71020; 36600 ×2; 93005; 93010; G0378 ×2; G0480 ×3; J3490; 80320; 80329; 99220; J1650; J7030

== ENCOUNTER 2017-10-31 12:06 | Emergency (ER) | payer MEDICAID ==
--- NOTE | 2017-10-31 12:52 | Emergency Department Record ---
History of Present Illness - General Chief Complaint: Abdominal Pain Stated Complaint: Abd pain/swelling Time Seen by Provider: 10/31/17 12:42 Source: Patient Mode of Arrival: Ambulatory Limitations: No limitations - History of Present Illness Initial Comments: 42 yo female presents with abdominal pain. She has been dealing with abdominal issues, appetite issues, and weight loss for 1.5 years. She has been seeing endocrinology, GI, rheumatology, PCP, hematology. No diagnosis has been made except she has an autoimmune disease NOS. She has had recent colonoscopy, CT scans, cystoscopy. No diagnosis. She has nausea, poor appetite, and pain. She frequently feels bloated. She states her current weight is stable at 105. Her lowest weight was 92. She does have gastroparesis. She states she had IBD younger in life but no evidence on the last colonscopy this year. She has anxiety, fibromyalgia, thyroid disease. MD Complaint: Abdominal pain Onset/Timin -: Week(s) Location: Bilateral flank, LUQ, RUQ Radiation: Back, Bilateral flank, Epigastric Severity: Moderate Severity scale (1-10): 5 Quality: Aching, Sharp Consistency: Intermittent Improves With: Nothing Worsens With: Nothing Associated Symptoms: Nausea - Related Data Home Medications Medication Instructions Recorded Confirmed Last Taken Bisacodyl [Dulcolax] 5 mg PO DAILY PRN 10/31/17 10/31/17 10/30/17 20:00 Methocarbamol [Robaxin] 500 mg PO DAILY 10/31/17 10/31/17 1 Week Ago ~10/24/17 Omeprazole [Prilosec] 20 mg PO DAILY 10/31/17 10/31/17 10/31/17 08:00 Tramadol HCl 50 mg PO TID PRN 10/31/17 10/31/17 1 Week Ago ~10/24/17 Previous Rx's Medication Instructions Recorded Potassium Chloride [Klor-Con] 20 meq PO BID #60 tab 12/16/16 Hydrocodone/Acetaminophen [[place] 1 tab PO Q8H PRN #10 tab 10/31/17 5mg/325mg] Allergies Allergy/AdvReac Type Severity Reaction Status Date / Time pregabalin [From Lyrica] Allergy DIFFICULTY Verified 12/15/16 15:51 BREATHING Travel Screening - Travel/Exposure Within Last 30 Days Have you traveled within the last 30 days?: No - Travel/Exposure Within Last Year Have you traveled outside the [place] in the last year?: No - Additonal Travel Details Have you been exposed to anyone with a communicable illness?: No - Travel Symptoms Symptom Screening: None Review of Systems Constitutional: Denies: Chills, Fever, Weakness Eyes: Denies: Eye discharge ENT: Denies: Congestion, Throat pain Respiratory: Denies: Cough, Dyspnea, Hemoptysis, Wheezes Cardiovascular: Denies: Chest pain, Palpitations, Syncope Endocrine: Reports: Fatigue Gastrointestinal: Reports: Abdominal pain, Nausea. Denies: Constipation, Diarrhea, Hematemesis, Hematochezia, Melena, Vomiting Genitourinary: Denies: Dysuria, Urgency Musculoskeletal: Denies: Arthralgia, Back pain, Myalgia Skin: Denies: Bruising, Change in color, Rash Neurological: Denies: Headache, Numbness, Weakness Psychiatric: Denies: Anxiety Hematological/Lymphatic: Denies: Blood Clots, Easy bleeding, Easy bruising, Swollen glands Past Medical History - SOCIAL HISTORY Smoking Status: Current every day smoker Alcohol Use: None Drug Use: None - RESPIRATORY Hx Respiratory Disorders: Yes Hx Asthma: Yes (uses inhalers PRN) - CARDIOVASCULAR Hx Cardio Disorders: No Hx Chest Pain: Yes Hx Hypertension: No Hx Palpitations: Yes Comment:: d/t recent surgery - NEURO Hx Neuro Disorders: Yes Hx Dizziness: Yes - GI Hx GI Disorders: Yes Hx Abdominal Pain: Yes Hx Reflux: Yes Hx Nausea/Vomiting: Yes Hx Wt Loss/Wt Gain: Yes Comment:: Gastroparesis - Hx Genitourinary Disorders: No - ENDOCRINE Hx Endocrine Disorders: Yes Comment:: Thyroid gland has cysts on it - MUSCULOSKELETAL Hx Musculoskeletal Disorders: Yes Comment:: joint pain, redness and swelling - ? autoimmune - PSYCH Hx Psych Problems: Yes Hx Anxiety: Yes Hx Depression: Yes - HEMATOLOGY/ONCOLOGY Hx Hematology/Oncology Disorders: No Family Medical History Any Significant Family History?: Yes Hx Cancer: Grandparents *Cancer Comment: Paternal Great-Grandfather - colon cancer Course Vital Signs 10/31/17 12:18 Temperature 98.7 F Pulse Rate 93 H Respiratory 18 Rate Blood Pressure 120/82 Pulse Ox 98 - Reevaluation(s) Reevaluation #1: The CBC and UA were reviewed No acute changes or abnormalities. 10/31/17 13:45 10/31/17 13:59 The K is 3.1 Supplemented 10/31/17 14:06 [facility] was used to review prior treatment and testing [facility] records were reviewed including colonoscopy, labs, and progress office visit notes No specific cause of her symptoms were found There are no acute changes on her labs HCG is negative Lipase is negative The patient has had extensive work ups No fever, changes in labs or examination to suggest additional testing will be valuable today We discussed the results of the tests and questions were answered at the time of discharge. The patient is doing well and is comfortable with DC. DC vitals were reviewed. We discussed at length reasons to immediately return to the ED as well as close follow up. The patient will call the PCP for close follow up of this ED visit to review this visit and the tests performed Medical Decision Making - Lab Data Result diagrams: 10/31/17 12:53 10/31/17 12:53 Disposition Disposition: Discharge Clinical Impression: Abdominal pain Qualifiers: Abdominal location: unspecified location Qualified Code(s): R10.9 - Unspecified abdominal pain Disposition: Home, Self-Care Condition: (1) Good Instructions: Abdominal Pain (ED) Additional Instructions: Call your PCP and your [facility] doctors for close follow up I recommend being seen at [facility] if your symptoms continue Prescriptions: Hydrocodone/Acetaminophen [[place] 5mg/325mg] 1 tab PO Q8H PRN #10 tab PRN Reason: Pain - General Forms: Patient Portal Access Time of Disposition: 14:09 Quality - Quality Measures Quality Measures: N/A - Blood Pressure Screening Does Patient Have Any of the Following: No Blood Pressure Classification: Pre-Hypertensive BP Reading Systolic Measurement: 120 Diastolic Measurement: 77 Screening for High Blood Pressure: < Pre-Hypertensive BP, F/U Documented > [ G8950] Pre-Hypertensive Follow-up Interventions: Referral to alternative/primary care provider.
[2017-10-31] MEDS ORDERED: ONDANSETRON HCL IV 4 MG/2 ML VIAL IVP ONE (12:53)
[2017-10-31] MEDS ORDERED: 0.9 % SODIUM CHLORIDE 1,000 ML BAG IV ONE (12:53)
[2017-10-31] MEDS ORDERED: KETOROLAC 30 MG/ML VIAL IVP ONE (13:01)
[2017-10-31 13:21] LABS: BASO % 0.5 % (0-6); EOS % 1.3 % (0-6); GRAN % 70.8 % (47-80); LYMPH % 20.5 % (16-45); MEAN CELL VOLUME 110.2 fl (81-97); MEAN CORPUSCULAR HEMOGLOBIN 35.8 pg (27-33); MEAN CORPUSCULAR HGB CONC 32.5 g/dl (32-36); MEAN PLATELET VOLUME 10.4 fl (7.4-10.4); MONO % 6.9 % (0-9); PLATELET COUNT 387 K/uL (130-400); RED BLOOD COUNT 3.63 M/uL (3.80-5.40); RED CELL DISTRIBUTION WIDTH 13.9 % (11.5-14.5); URINE APPEARANCE CLEAR; URINE BILIRUBIN NEGATIVE (NEGATIVE); URINE BLOOD NEGATIVE (NEGATIVE); URINE COLOR YELLOW; URINE GLUCOSE (UA) NEGATIVE (NEGATIVE); URINE KETONE NEGATIVE (NEGATIVE); URINE LEUKOCYTE ESTERASE NEGATIVE (NEGATIVE); URINE NITRITE NEGATIVE (NEGATIVE); URINE PROTEIN NEGATIVE (NEGATIVE); URINE UROBILINOGEN 0.2 E.U./dL (0.20 - 1.00); WHITE BLOOD COUNT W/O DIFF 10.5 K/uL (4.2-12.2)
[2017-10-31 13:33] LABS: BILIRUBIN,TOTAL < 0.20 mg/dL (0.2-1.0); BLOOD UREA NITROGEN 7 mg/dL (6-20); CREATININE 0.5 mg/dL (0.5-0.9); EST GLOMERULAR FILTRATION RATE > 60 mL/min
[2017-10-31 13:34] LABS: TOTAL PROTEIN 6.5 g/dL (6.6-8.7)
[2017-10-31 13:36] LABS: GLUCOSE,RANDOM 90 mg/dL (74-109)
[2017-10-31 13:38] LABS: ALB/GLOB RATIO 1.7 (1.1-1.8); ALBUMIN 4.1 g/dL (4.0-5.0); ALKALINE PHOSPHATASE 76 U/L (35-104); ALT/SGPT 21 U/L (<33); AST/SGOT 22 U/L (10.0-35.0); LIPASE 48 U/L (13-60)
[2017-10-31 13:39] LABS: C-REACTIVE PROTEIN 0.18 mg/dL (<0.5)
[2017-10-31] MEDS ORDERED: HYDROMORPHONE HCL 2 MG/ML VIAL IVP ONE (13:42)
[2017-10-31] MEDS ORDERED: POTASSIUM CHLORIDE 20 MEQ TABLET PO ONE (13:58)
[2017-10-31 14:41] LABS: ERYTHROCYTE SEDIMENTATION RATE 2 mm/hr (0-20)
== END 2017-10-31 14:43 | disposition home or self-care (01) ==
LOC: ER 12:06
DX: R10.84 Generalized abdominal pain (principal); R14.0 Abdominal distension (gaseous); R11.0 Nausea; F17.210 Nicotine dependence, cigarettes, uncomplicated
CPT/HCPCS: 99284 ×2; 96374; 96375; 83690; 85025; 85651; 86140; 80053; 81003; 84703; J1885; J1170; J7030

== ENCOUNTER 2018-12-14 13:29 | Emergency (ER) | payer MEDICAID ==
--- NOTE | 2018-12-14 14:17 | Emergency Department Record ---
History of Present Illness - General Stated complaint: LT ANKLE INJURY Time Seen by Provider: 12/14/18 14:11 Source: Patient Mode of Arrival: Ambulatory Limitations: No limitations - History of Present Illness Initial comments: 43 yo female presents with left foot and ankle pain. She stepped awkwardly out of a truck last night. She twisted the foot and ankle. She has pain over the lateral foot and ankle. Intact skin. No other injuries. She has had a bunion surgery on bother feet. MD Complaint: Extremity pain, Joint pain -: Days(s) (1) Location: Left -: Yes Arthralgia Radiation: Distal Quality: Aching Consistency: Constant Improves with: Immobilization Worsens with: Weight bearing Associated Symptoms: Arthralgias - Related Data Home Medications Medication Instructions Recorded Confirmed Last Taken Lisinopril 40 mg PO DAILY 12/14/18 12/14/18 12/14/18 Previous Rx's Medication Instructions Recorded Potassium Chloride [Klor-Con] 20 meq PO BID #60 tab 12/16/16 Allergies Allergy/AdvReac Type Severity Reaction Status Date / Time pregabalin [From Lyrica] Allergy DIFFICULTY Verified 12/15/16 15:51 BREATHING Review of Systems Constitutional: Denies: Chills, Fever, Malaise, Weakness Eyes: Denies: Eye discharge ENT: Denies: Congestion, Throat pain Respiratory: Denies: Cough Cardiovascular: Denies: Chest pain, Edema Endocrine: Denies: Fatigue Gastrointestinal: Denies: Abdominal pain, Diarrhea, Nausea, Vomiting Genitourinary: Denies: Dysuria, Urgency Musculoskeletal: Reports: As per HPI, Arthralgia, Joint swelling, Myalgia, Neck pain Skin: Reports: Bruising (foot) Neurological: Reports: Tingling (tingling in the lateral foot). Denies: Numbness Psychiatric: Reports: Anxiety Hematological/Lymphatic: Denies: Easy bleeding, Easy bruising Past Medical History - SOCIAL HISTORY Smoking Status: Current every day smoker Drug Use: None - RESPIRATORY Hx Respiratory Disorders: Yes Hx Asthma: Yes (uses inhalers PRN) - CARDIOVASCULAR Hx Cardio Disorders: No Hx Chest Pain: Yes Hx Hypertension: No Hx Palpitations: Yes Comment:: d/t recent surgery - NEURO Hx Neuro Disorders: Yes Hx Dizziness: Yes - GI Hx GI Disorders: Yes Hx Abdominal Pain: Yes Hx Reflux: Yes Hx Nausea/Vomiting: Yes Hx Wt Loss/Wt Gain: Yes Comment:: Gastroparesis - Hx Genitourinary Disorders: No - ENDOCRINE Hx Endocrine Disorders: Yes Comment:: Thyroid gland has cysts on it - MUSCULOSKELETAL Hx Musculoskeletal Disorders: Yes Comment:: joint pain, redness and swelling - ? autoimmune - PSYCH Hx Psych Problems: Yes Hx Anxiety: Yes Hx Depression: Yes - HEMATOLOGY/ONCOLOGY Hx Hematology/Oncology Disorders: No Family Medical History Hx Cancer: Grandparents *Cancer Comment: Paternal Great-Grandfather - colon cancer Physical Exam - General General Appearance: Alert, Oriented x3, Cooperative, No acute distress Limitations: No limitations - Head Head exam: Atraumatic, Normal inspection - Eye Eye exam: Normal appearance - ENT ENT exam: Normal exam Ear exam: Normal external inspection Nasal Exam: Normal inspection Mouth exam: Normal external inspection - Neck Neck exam: Normal inspection - Cardiovascular Peripheral Pulses: 2+: Dorsalis Pedis (L) - Extremities Extremities exam: Full ROM, Joint swelling, Normal capillary refill, Tenderness. negative: Normal inspection Image of Feet: 1 - tender, bruising, swelling,intact skin 2 - achilles and proximal fibula are not tender - Neurological Neurological exam: Alert, Oriented X3 - Psychiatric Psychiatric exam: Normal affect, Normal mood - Skin Skin exam: Dry, Intact, Normal color, Warm Course - Reevaluation(s) Reevaluation #1: 12/14/18 14:42 The XR's of the foot and ankle were reviewed No definite fracture or dislocation She has significant pain so she will be placed in a [employer] for support I recommend follow up in the next one week to get a recheck with her doctor 12/14/18 15:53 The patient's BP was elevated. This was discussed with her. She has been followed closely by her PCP. She is asymptomatic. I recommended a daily log with her first BP of the day and take that to her PCP. Her doctor is aware and has been working with her medications. Disposition Disposition: Discharge Clinical Impression: Sprain of foot, left Qualifiers: Encounter type: initial encounter Qualified Code(s): S93.602A - Unspecified sprain of left foot, initial encounter Ankle sprain Qualifiers: Encounter type: initial encounter Involved ligament of ankle: unspecified ligament Laterality: unspecified laterality Qualified Code(s): S93.409A - Sprain of unspecified ligament of unspecified ankle, initial encounter Disposition: Home, Self-Care Condition: (1) Good Instructions: Ankle Sprain (ED) Additional Instructions: Use the boot for support and comfort Call your doctor for a recheck in 7-10 days if you still have any pain Forms: Patient Portal Access Time of Disposition: 14:44 Quality - Quality Measures Quality Measures: N/A - Blood Pressure Screening Does Patient Have Any of the Following: Active Dx of HTN Blood Pressure Classification: Hypertensive Reading Systolic Measurement: 193 Diastolic Measurement: 126 Screening for High Blood Pressure: Patient Exclusion, Hx of HTN [G9744] Pre-Hypertensive Follow-up Interventions: Referral to alternative/primary care provider.
--- NOTE | 2018-12-15 09:25 | RADIOLOGY REPORT ---
EXAM: LEFT ANKLE HISTORY: PATIENT TWISTED LEFT FOOT AND ANKLE YESTERDAY GETTING OUT OF A VEHICLE, PAIN WITH WEIGHT BEARING. TECHNIQUE: Four views of the left ankle were obtained. Comparison: No prior left ankle series. Encounter: Initial. FINDINGS: No prominent soft tissue swelling seen at the ankle. No definite fracture or dislocation evident. IMPRESSION: THE LEFT ANKLE APPEARS ESSENTIALLY NEGATIVE WITH NO DEFINITE FRACTURE IDENTIFIED. JOB NUMBER: [id number] [facility]
--- NOTE | 2018-12-15 09:31 | RADIOLOGY REPORT ---
EXAM: LEFT FOOT HISTORY: PATIENT TWISTED LEFT FOOT AND ANKLE YESTERDAY GETTING OUT OF A VEHICLE WITH PAIN DORSALLY AND LATERALLY WITH WEIGHT BEARING. TECHNIQUE: Three views of the left foot were obtained. Comparison: No prior left foot series. Encounter: Initial. FINDINGS: Mild degenerative change at the first MTP joint. No definite fracture or dislocation of the left foot identified. No prominent soft tissue swelling evident. IMPRESSION: 1. DEGENERATIVE CHANGE AT THE FIRST MTP JOINT. 2. NO DEFINITE FRACTURE OF THE LEFT FOOT IDENTIFIED. J[facility]BER: [id number] [facility]
== END 2018-12-14 15:14 | disposition home or self-care (01) ==
LOC: ER 13:29
DX: S93.402A Sprain of unspecified ligament of left ankle, initial encounter (principal); S93.602A Unspecified sprain of left foot, initial encounter; X50.0XXA Overexertion from strenuous movement or load, initial encounter; I10 Essential (primary) hypertension; F17.210 Nicotine dependence, cigarettes, uncomplicated
CPT/HCPCS: 99284

== ENCOUNTER 2019-02-09 14:22 | Emergency (ER) | payer MEDICAID ==
[2019-02-09 15:29] LABS: URINE APPEARANCE CLEAR; URINE BILIRUBIN NEGATIVE (NEGATIVE); URINE BLOOD SMALL (NEGATIVE); URINE COLOR YELLOW; URINE GLUCOSE (UA) NEGATIVE (NEGATIVE); URINE KETONE NEGATIVE (NEGATIVE); URINE LEUKOCYTE ESTERASE LARGE (NEGATIVE); URINE NITRITE NEGATIVE (NEGATIVE); URINE UROBILINOGEN 0.2 E.U./dL (0.20 - 1.00)
--- NOTE | 2019-02-09 15:34 | Emergency Department Record ---
History of Present Illness - General Chief complaint: Female Urogenital Problem Stated complaint: UTI Time Seen by Provider: 02/09/19 14:35 Source: Patient Mode of Arrival: Ambulatory Limitations: No limitations - History of Present Illness Initial comments: 44 yo female presents with discomfort with urination for a week. She has pain with voiding. She has seen a small amount of blood at times. No retention. She had some subjective low grade fevers and lower back pain but none currently. No vomiting. No vaginal bleeding. Onset/Timin -: Days(s) Severity: Moderate Severity scale (1-10): 8 Quality: Aching, Burning, Cramping Worsens with: Urination Associated Symptoms: Dysuria, Hematuria - Related Data Home Medications Medication Instructions Recorded Confirmed Last Taken Disulfiram [Antabuse] 250 mg PO DAILY 02/09/19 02/09/19 1 Day Ago ~02/08/19 Previous Rx's Medication Instructions Recorded Potassium Chloride [Klor-Con] 20 meq PO BID #60 tab 12/16/16 Cephalexin [Keflex] 500 mg PO QID #28 cap 02/09/19 Fluconazole [Diflucan] 150 mg PO WEEKLY #3 tablet 02/09/19 Phenazopyridine HCl [Pyridium] 100 mg PO TID #6 tablet 02/09/19 Allergies Allergy/AdvReac Type Severity Reaction Status Date / Time pregabalin [From Lyrica] Allergy DIFFICULTY Verified 02/09/19 15:07 BREATHING Travel Screening - Travel/Exposure Within Last 30 Days Have you traveled within the last 30 days?: No - Travel/Exposure Within Last Year Have you traveled outside the [place] in the last year?: No - Additonal Travel Details Have you been exposed to anyone with a communicable illness?: No - Travel Symptoms Symptom Screening: None Review of Systems Constitutional: Reports: As per HPI, Fever. Denies: Chills, Malaise, Weakness Eyes: Denies: Eye discharge, Eye pain, Vision change ENT: Denies: Congestion, Throat pain Respiratory: Denies: Cough, Dyspnea, Hemoptysis, Wheezes Cardiovascular: Denies: Chest pain, Palpitations, Syncope Endocrine: Denies: Fatigue, Polydipsia, Polyuria Gastrointestinal: Reports: As per HPI, Abdominal pain, Nausea. Denies: Diarrhea, Vomiting Genitourinary: Reports: Dysuria, Hematuria. Denies: Abnormal menses, Frequency, Retention, Urgency Musculoskeletal: Reports: As per HPI, Back pain. Denies: Arthralgia, Neck pain Skin: Denies: Bruising, Change in color, Rash Neurological: Denies: Headache Psychiatric: Denies: Anxiety Hematological/Lymphatic: Denies: Easy bleeding, Easy bruising Past Medical History - SOCIAL HISTORY Smoking Status: Current every day smoker Alcohol Use: None Drug Use: None - RESPIRATORY Hx Respiratory Disorders: Yes Hx Asthma: Yes (uses inhalers PRN) - CARDIOVASCULAR Hx Cardio Disorders: No Hx Chest Pain: Yes Hx Hypertension: Yes Hx Palpitations: Yes Comment:: d/t recent surgery - NEURO Hx Neuro Disorders: Yes Hx Dizziness: Yes - GI Hx GI Disorders: Yes Hx Abdominal Pain: Yes Hx Reflux: Yes Hx Nausea/Vomiting: Yes Hx Wt Loss/Wt Gain: Yes Comment:: Gastroparesis - Hx Genitourinary Disorders: No - ENDOCRINE Hx Endocrine Disorders: Yes Hx Thyroid Disease: Yes Comment:: Thyroid gland has cysts on it - MUSCULOSKELETAL Hx Musculoskeletal Disorders: Yes Comment:: joint pain, redness and swelling - ? autoimmune - PSYCH Hx Psych Problems: Yes Hx Anxiety: Yes Hx Depression: Yes - HEMATOLOGY/ONCOLOGY Hx Hematology/Oncology Disorders: No Family Medical History Any Significant Family History?: Yes Hx Cancer: Grandparents *Cancer Comment: Paternal Great-Grandfather - colon cancer Physical Exam - General General Appearance: Alert, Oriented x3, Cooperative, No acute distress Limitations: No limitations - Head Head exam: Atraumatic, Normal inspection - Eye Eye exam: Normal appearance, PERRL. negative: Conjunctival injection, Scleral icterus - ENT ENT exam: Normal exam Ear exam: Normal external inspection Nasal Exam: Normal inspection Mouth exam: Normal external inspection - Neck Neck exam: Normal inspection - Respiratory Respiratory exam: Normal lung sounds bilaterally. negative: Respiratory distress - Cardiovascular Cardiovascular Exam: Regular rate, Normal rhythm, Normal heart sounds - GI/Abdominal GI/Abdominal exam: Soft, Tenderness (mild suprapubic tenderness). negative: Distended, Guarding, Rebound, Rigid - Rectal Rectal exam: Deferred - exam: Deferred Course Vital Signs 02/09/19 14:59 Temperature 99.5 F Pulse Rate 75 Respiratory 16 Rate Blood Pressure 146/86 Pulse Ox 99 - Reevaluation(s) Reevaluation #1: Vitals reviewed Mild HTN otherwise no significant abnormalities No fever or tachycardia 02/09/19 15:55 UA is consistent with UTI DC on Keflex and Pyridium 02/09/19 16:00 Disposition Disposition: Discharge Clinical Impression: Urinary tract infection Qualifiers: Urinary tract infection type: site unspecified Hematuria presence: with hematuria Qualified Code(s): N39.0 - Urinary tract infection, site not specified Disposition: Home, Self-Care Condition: (1) Good Instructions: Urinary Tract Infection in Women (ED) Additional Instructions: Review this ER visit and the tests performed with your family doctor Call your doctor for the next available follow up appointment Return to the ER for a recheck if worse, any new concerns or questions Take the prescriptions provided as directed Prescriptions: Fluconazole [Diflucan] 150 mg PO WEEKLY #3 tablet Cephalexin [Keflex] 500 mg PO QID #28 cap Phenazopyridine HCl [Pyridium] 100 mg PO TID #6 tablet Forms: Patient Portal Access Time of Disposition: 15:54 Quality - Quality Measures Quality Measures: N/A - Blood Pressure Screening Does Patient Have Any of the Following: No Blood Pressure Classification: Pre-Hypertensive BP Reading Systolic Measurement: 146 Diastolic Measurement: 86 Screening for High Blood Pressure: < Pre-Hypertensive BP, F/U Documented > [G8950] Pre-Hypertensive Follow-up Interventions: Referral to alternative/primary care provider.
[2019-02-09 15:51] LABS: HCG,QUALITATIVE URINE NEGATIVE (NEGATIVE); URINE EPITHELIAL CELLS 0 - 2 (FEW)
[2019-02-09] MEDS ORDERED: CEPHALEXIN 500 MG CAPSULE PO STA (15:52)
== END 2019-02-09 16:12 | disposition home or self-care (01) ==
LOC: ER 14:22
DX: N39.0 Urinary tract infection, site not specified (principal); M54.5 Low back pain; I10 Essential (primary) hypertension; F17.210 Nicotine dependence, cigarettes, uncomplicated
CPT/HCPCS: 81001; 81025; 99283

== ENCOUNTER 2019-02-11 11:01 | Emergency (ER) | payer MEDICAID ==
[2019-02-11 11:53] LABS: URINE APPEARANCE CLEAR; URINE BILIRUBIN NEGATIVE (NEGATIVE); URINE BLOOD TRACE-I (NEGATIVE); URINE COLOR YELLOW; URINE GLUCOSE (UA) NEGATIVE (NEGATIVE); URINE KETONE NEGATIVE (NEGATIVE); URINE LEUKOCYTE ESTERASE MODERATE (NEGATIVE); URINE NITRITE POSITIVE (NEGATIVE); URINE PROTEIN TRACE (NEGATIVE); URINE UROBILINOGEN 0.2 E.U./dL (0.20 - 1.00)
--- NOTE | 2019-02-11 11:54 | Emergency Department Record ---
History of Present Illness - General Chief complaint: Female Urogenital Problem Stated complaint: UNABLE TO URINATE Time Seen by Provider: 02/11/19 11:04 Source: Patient Mode of Arrival: Ambulatory Limitations: No limitations - History of Present Illness Initial comments: The patient is here due to dysuria and urinary urgency and spasms for a week. She denies any AP, new back pain, fever, vomiting, or diarrhea. [facility] and had a neg urine culture performed. She also was seen in the ER 2 days ago and diagnosed with a mild UTI and started on Keflex. Now the patient is here due to not having any resolution of her symptoms. She still feels like she is unable to void. She denies any vaginal issues and she has had a VIC in the past. MD Complaint: Dysuria Onset/Timin -: Week(s) Location: Perineum Radiation: Suprapubic Severity: Moderate Severity scale (1-10): 8 Quality: Cramping Consistency: Constant Improves with: None Worsens with: None Patient : No Associated Symptoms: Denies other symptoms - Related Data Previous Rx's Medication Instructions Recorded Potassium Chloride [Klor-Con] 20 meq PO BID #60 tab 12/16/16 Cephalexin [Keflex] 500 mg PO QID #28 cap 02/09/19 Fluconazole [Diflucan] 150 mg PO WEEKLY #3 tablet 02/09/19 Phenazopyridine HCl [Pyridium] 100 mg PO TID #6 tablet 02/09/19 Phenazopyridine HCl [Pyridium] 100 mg PO TID #6 tablet 02/11/19 Sulfamethoxazole/Trimethoprim 1 tab PO BID #14 tab 02/11/19 [Bactrim Ds] Allergies Allergy/AdvReac Type Severity Reaction Status Date / Time pregabalin [From Lyrica] Allergy DIFFICULTY Verified 02/11/19 11:36 BREATHING Travel Screening - Travel/Exposure Within Last 30 Days Have you traveled within the last 30 days?: No - Travel/Exposure Within Last Year Have you traveled outside the [place] in the last year?: No - Additonal Travel Details Have you been exposed to anyone with a communicable illness?: No - Travel Symptoms Symptom Screening: None Review of Systems Constitutional: Denies: Chills, Fever Eyes: Denies: Eye discharge ENT: Denies: Congestion Respiratory: Denies: Cough, Dyspnea Past Medical History - SOCIAL HISTORY Smoking Status: Current every day smoker Alcohol Use: None Drug Use: None - RESPIRATORY Hx Respiratory Disorders: Yes Hx Asthma: Yes (uses inhalers PRN) - CARDIOVASCULAR Hx Cardio Disorders: Yes Hx Chest Pain: Yes Hx Hypertension: Yes Hx Palpitations: Yes Comment:: d/t recent surgery - NEURO Hx Neuro Disorders: Yes Hx Dizziness: Yes - GI Hx GI Disorders: Yes Hx Abdominal Pain: Yes Hx Reflux: Yes Hx Nausea/Vomiting: Yes Hx Wt Loss/Wt Gain: Yes Comment:: Gastroparesis - Hx Genitourinary Disorders: No - ENDOCRINE Hx Endocrine Disorders: Yes Hx Thyroid Disease: Yes Comment:: Thyroid gland has cysts on it - MUSCULOSKELETAL Hx Musculoskeletal Disorders: Yes Comment:: joint pain, redness and swelling - ? autoimmune - PSYCH Hx Psych Problems: Yes Hx Anxiety: Yes Hx Depression: Yes - HEMATOLOGY/ONCOLOGY Hx Hematology/Oncology Disorders: No Family Medical History Any Significant Family History?: Yes Hx Cancer: Grandparents *Cancer Comment: Paternal Great-Grandfather - colon cancer Physical Exam - General General Appearance: Alert, Oriented x3, Cooperative, No acute distress - Head Head exam: Atraumatic, Normocephalic - Eye Eye exam: Normal appearance, PERRL - Neck Neck exam: Normal inspection, Full ROM. negative: Tenderness - Respiratory Respiratory exam: Normal lung sounds bilaterally. negative: Respiratory distress - Cardiovascular Cardiovascular Exam: Regular rate, Normal rhythm, Normal heart sounds - GI/Abdominal GI/Abdominal exam: Soft, Normal bowel sounds, Tenderness (There is mild suprapubic tenderness.). negative: Rebound, Rigid - Extremities Extremities exam: Normal inspection, Full ROM, Normal capillary refill. negative: Tenderness - Back Back exam: Reports: Normal inspection, Full ROM. Denies: CVA tenderness (R), CVA tenderness (L), Muscle spasm, Rash noted, Tenderness - Neurological Neurological exam: Alert. negative: Motor sensory deficit Course Vital Signs 02/11/19 11:38 Temperature 97.9 F Pulse Rate 73 Respiratory 20 Rate Blood Pressure 122/80 Pulse Ox 100 - Reevaluation(s) Reevaluation #1: The patient is doing a lot better at this time. She did have 300 mls of urine in the bladder which was removed by Straight cath. After the procedure the patient felt MUCH better. She presently denies any pain or discomfort. I did discuss the low Potassium with the patient and she clearly has a hx of that. She is supposed to be taking 20 meq of K+ BID but has not been taking it recently. She does have it at home though. Because of that we will give the patient an extra dose and check an EKG and if normal will discharge the patient. We will stop her Keflex and start Bactrim and the patient is to see her PCP later this week for recheck. I did explain that due to the infection slightly worsening and the fact she is still having symptoms of an infection the bacteria must be resistant to the Keflex. Because of that we will change her Abx to Bactrim and discharge the patient. Her culture from 2 days ago is not available at this time. 02/11/19 13:20 Medical Decision Making - Data Complexity MDM Data: Labs Ordered and/or Reviewed, EKG Ordered and/or Reviewed - Lab Data Result diagrams: 02/11/19 12:15 02/11/19 12:15 - EKG Data -: EKG Interpreted by Me EKG: No Acute Changes (NSR at 64, OH and QT interval WNL's, LVH with repolarization abnormalities, No sig change from 12/15/16.), Unchanged From Previous Disposition Disposition: Discharge Clinical Impression: Hypokalemia Urinary tract infection Qualifiers: Urinary tract infection type: acute cystitis Disposition: Home, Self-Care Condition: (2) Stable Instructions: Urinary Tract Infection in Women (ED) Additional Instructions: Please stop the Keflex and start the Bactrim. Please restart your home po tassium. Please return to the ER in 2 days if not better and sooner for any worsening symptoms, pain, fever, or vomiting. Prescriptions: Sulfamethoxazole/Trimethoprim [Bactrim Ds] 1 tab PO BID #14 tab Phenazopyridine HCl [Pyridium] 100 mg PO TID #6 tablet Forms: Patient Portal Access Time of Disposition: 13:31 Quality - Quality Measures Quality Measures: N/A - Blood Pressure Screening View Details: Yes Does Patient Have Any of the Following: No Blood Pressure Classification: Pre-Hypertensive BP Reading Systolic Measurement: 122 Diastolic Measurement: 80 Screening for High Blood Pressure: < Pre-Hypertensive BP, F/U Documented > [G8950] Pre-Hypertensive Follow-up Interventions: Referral to alternative/primary care provider.
[2019-02-11 12:02] LABS: URINE BACTERIA FEW; URINE WBC 16 - 20 (0-2/hpf)
[2019-02-11] MEDS ORDERED: TMP/SMZ 160MG/800MG TAB PO ONE (12:38)
[2019-02-11 12:47] LABS: ABSOLUTE NEUTROPHIL COUNT 7.56; BASO % 0.2 % (0-6); EOS % 2.7 % (0-6); GRAN % 68.5 % (47-80); HEMATOCRIT 36.6 % (35.0-47.0); HEMOGLOBIN 12.6 gm/dl (11.6-16.0); LYMPH % 23.3 % (16-45); MEAN CELL VOLUME 98.7 fl (81-97); MEAN CORPUSCULAR HGB CONC 34.4 g/dl (32-36); MEAN PLATELET VOLUME 9.8 fl (7.4-10.4); MONO % 5.3 % (0-9); PLATELET COUNT 304 K/uL (130-400); RED BLOOD COUNT 3.71 M/uL (3.80-5.40); RED CELL DISTRIBUTION WIDTH 13.3 % (11.5-14.5)
[2019-02-11 12:49] LABS: MEAN CORPUSCULAR HEMOGLOBIN 33.9 pg (27-33)
[2019-02-11 13:00] LABS: BLOOD UREA NITROGEN 9 mg/dL (6-20); CREATININE 0.7 mg/dL (0.5-0.9); EST GLOMERULAR FILTRATION RATE > 60 mL/min
[2019-02-11 13:03] LABS: GLUCOSE,RANDOM 96 mg/dL (74-109)
[2019-02-11] MEDS ORDERED: POTASSIUM CHLORIDE 20 MEQ TABLET PO ONE (13:13)
== END 2019-02-11 13:49 | disposition home or self-care (01) ==
LOC: ER 11:01
DX: N30.00 Acute cystitis without hematuria (principal); E87.6 Hypokalemia; I10 Essential (primary) hypertension; F17.210 Nicotine dependence, cigarettes, uncomplicated
CPT/HCPCS: 99284 ×2; 85025; 80048; 81001; 93005; 93010; J3490